=== PATIENT | male | born 1965 | race African-American/Black ===

== ENCOUNTER 2023-10-14 16:13 | Emergency (ER) | payer OTHER, MEDICARE ==
[2023-10-14] MEDS ORDERED: Bacitracin 1 PK ONE (16:29)
[2023-10-14] MEDS ORDERED: Boostrix 0.5 ML (Tdap) VIAL (>/=7 yrs of age) ONE (16:29)
== END 2023-10-14 16:47 | disposition home or self-care (01) ==
LOC: BURERS 16:13
DX: S51.812A Laceration without foreign body of left forearm, initial encounter (principal); I10 Essential (primary) hypertension; F17.220 Nicotine dependence, chewing tobacco, uncomplicated; W55.11XA Bitten by horse, initial encounter; Z23 Encounter for immunization; Z79.01 Long term (current) use of anticoagulants
CPT/HCPCS: 90471; 90715